=== PATIENT | male | born 1960 | race African-American/Black ===

== ENCOUNTER 2016-11-17 09:45 | Outpatient (CLI) | payer OTHER ==
[2016-11-17 10:46] LABS: ALT (SGPT) 20 U/L (8-55); AST (SGOT) 28 U/L (5-34); Albumin 3.9 g/dL (3.5-5.0); Alkaline Phosphatase 59 U/L (40-150); Anion Gap 12 mmol/L (10-20); BUN (Urea Nitrogen) 19 mg/dL (8.4-25.7); Bilirubin, Total 0.8 mg/dL (0.2-1.2); Calc. Creatinine Clearance 0 mL/min (70-130); Carbon Dioxide 23 mmol/L (22-29); Cardiac Risk 3.1 (Less than 4.5); Chloride 110 mmol/L (98-107); Cholesterol 141 mg/dl (< 200 Desired); Estimated GFR-MDRD 71; Globulin 3.4 g/dL (2.4-3.5); Glucose 106 mg/dL (70-105); HDL Cholesterol 45 mg/dL (>60 Neg Risk); LDL Cholesterol, Calculated 75 mg/dL; Potassium 4.4 mmol/L (3.5-5.1); Protein, Total 7.3 g/dL (6.0-8.3); Sodium 141 mmol/L (136-145); Triglycerides 107 mg/dL (Less than 150)
[2016-11-17 10:57] LABS: Hemoglobin A1c 5.5 % (4.0-6.0)
[2016-11-17 11:13] LABS: #Basophils 0.1 thou/uL (0.0-0.2); #Eosinphils 0.7 thou/uL (0.0-0.7); #Lymphocytes 1.8 thou/uL (1.20-3.40); #Monocytes 0.9 thou/uL (0.11-0.59); #Neutrophils 4.3 thou/uL (1.40-6.50); %Eosinophils 8.5 % (0.0-10.0); %Lymphocytes 23.1 % (21.0-51.0); %Neutrophils 55.4 % (42.0-75.0); Hemoglobin 14.3 g/dL (14.0-18.0); Mean Corpuscular HGB CONC 32.4 g/dL (32.0-36.0); Mean Corpuscular Volume 95.5 fl (80.0-94.0); Mean Platelet Volume 7.3 fL (7.4-10.4); Platelet Count 299 thou/uL (130-400); RBC Distribution Width 13.4 % (11.5-14.5); Red Blood Cell (RBC) Count 4.62 mill/uL (4.70-6.10); White Blood Cell (WBC) Count 7.8 thou/uL (4.8-10.8)
== END 2016-11-17 09:46 | disposition home or self-care (01) ==
LOC: MADLABBHPM 09:45
PROVIDERS: ATTEND Family Medicine
DX: I25.810 Atherosclerosis of coronary artery bypass graft(s) without angina pectoris (principal); N40.0 Benign prostatic hyperplasia without lower urinary tract symptoms; E78.5 Hyperlipidemia, unspecified; I10 Essential (primary) hypertension
CPT/HCPCS: 36415; 80053; 80061; 83036; 84443; 85025

== ENCOUNTER 2017-01-27 14:57 | Emergency (ER) | payer OTHER ==
[~2017-01-27 14:57] MED LIST: Sterile Water Irrigation 250 ML BOT ONE
[2017-01-27] MEDS ORDERED: Adacel (T-DAP) 0.5 ML VIAL ONE (15:51)
--- NOTE | 2017-01-27 16:17 | RAD ---
FRONTAL AND LATERAL IMAGING OF THE LEFT FOREARM: Date: 01-27-17 Comparison: None. History: Cut left wrist with glass one hour ago. FINDINGS: There is a prominent area of skin and soft tissue irregularity consistent with laceration medial to t he distal left ulna. No radiopaque foreign body, fracture, or dislocation. IMPRESSION: Prominent soft tissue laceration adjacent to the distal left ulna. POS: [facility]
[2017-01-27] MEDS ORDERED: Lidocaine 1% 20 ML MDV ONE (17:18)
[2017-01-27] MEDS ORDERED: Mupirocin 2% Ointment 22 GM Tube ONE (17:18)
[2017-01-27] MEDS ORDERED: Lidocaine 2% w/Epinephrine 1:200K 20 ML VIAL ONE (17:18)
[2017-01-27] MEDS ORDERED: Triple Antibiotic Oint 1 GM Packet ONE (17:19)
== END 2017-01-27 19:00 | disposition short-term general hospital (02) ==
LOC: MADERS 14:57
DX: S65.011A Laceration of ulnar artery at wrist and hand level of right arm, initial encounter (principal); S61.511A Laceration without foreign body of right wrist, initial encounter; I10 Essential (primary) hypertension; Z79.899 Other long term (current) drug therapy; Z23 Encounter for immunization; W25.XXXA Contact with sharp glass, initial encounter
CPT/HCPCS: 90471; 90715; J2001

== ENCOUNTER 2017-04-30 19:49 | Emergency (ER) | payer OTHER ==
[2017-04-30] MEDS ORDERED: Ibuprofen 800 MG TAB ONE (20:16)
[2017-04-30] MEDS ORDERED: Cyclobenzaprine 10 MG TAB ONE (20:16)
[2017-04-30] MEDS ORDERED: HYDROcodone/Acetaminophen 5/325 mg Tablet ONE (20:16)
--- NOTE | 2017-04-30 20:39 | RAD ---
FRONTAL RADIOGRAPH CHEST THREE VIEWS RIGHT RIBS 04/30/17 COMPARISON: None. HISTORY: Fall, trauma, pain. FINDINGS: Frontal radiograph chest demonstrates midline sternotomy wires. No pneumothorax, pleural fluid, focal consolidation or alveolar edema. Three views of right ribs demonstrate degenerative change of right AC joint. No displaced right sided rib fracture. IMPRESSION: No acute findings. POS: [facility]
== END 2017-04-30 21:01 | disposition home or self-care (01) ==
LOC: MADERS 19:49
DX: S30.0XXA Contusion of lower back and pelvis, initial encounter (principal); E78.5 Hyperlipidemia, unspecified; I10 Essential (primary) hypertension; Z79.899 Other long term (current) drug therapy; Z79.82 Long term (current) use of aspirin; W10.9XXA Fall (on) (from) unspecified stairs and steps, initial encounter

== ENCOUNTER 2017-09-16 10:03 | Outpatient (CLI) | payer OTHER ==
[2017-09-16 10:48] LABS: ALT (SGPT) 30 U/L (8-55); AST (SGOT) 32 U/L (5-34); Alkaline Phosphatase 44 U/L (40-150); Anion Gap 17 mmol/L (10-20); BUN (Urea Nitrogen) 18 mg/dL (8.4-25.7); Bilirubin, Total 0.7 mg/dL (0.2-1.2); Calc. Creatinine Clearance 0 mL/min (70-130); Carbon Dioxide 20 mmol/L (22-29); Chloride 109 mmol/L (98-107); Cholesterol 131 mg/dl (< 200 Desired); Estimated GFR-MDRD 81; Glucose 99 mg/dL (70-105); HDL Cholesterol 43 mg/dL (>60 Neg Risk); LDL Cholesterol, Calculated 55 mg/dL; Potassium 4.2 mmol/L (3.5-5.1); Sodium 142 mmol/L (136-145); Triglycerides 165 mg/dL (Less than 150)
[2017-09-16 10:51] LABS: #Basophils 0.1 thou/uL (0.0-0.2); #Eosinphils 0.2 thou/uL (0.0-0.7); #Lymphocytes 1.7 thou/uL (1.20-3.40); #Monocytes 0.6 thou/uL (0.11-0.59); #Neutrophils 3.2 thou/uL (1.40-6.50); %Basophils 1.4 % (0.0-1.0); %Eosinophils 3.6 % (0.0-10.0); %Lymphocytes 29.1 % (21.0-51.0); %Neutrophils 55.8 % (42.0-75.0); Mean Corpuscular HGB CONC 34.1 g/dL (32.0-36.0); Mean Corpuscular Hemoglobin 31.6 pg (27.0-31.0); Mean Corpuscular Volume 92.8 fL (78.0-98.0); Mean Platelet Volume 7.3 fL (7.4-10.4); Platelet Count 308 thou/uL (130-400); RBC Distribution Width 13.8 % (11.5-14.5); Red Blood Cell (RBC) Count 4.43 mill/uL (4.70-6.10); White Blood Cell (WBC) Count 5.8 thou/uL (4.8-10.8)
== END 2017-09-16 10:04 | disposition home or self-care (01) ==
LOC: MADLABBHPM 10:03
PROVIDERS: ATTEND Family Medicine
DX: E78.2 Mixed hyperlipidemia (principal); I10 Essential (primary) hypertension; F17.200 Nicotine dependence, unspecified, uncomplicated
CPT/HCPCS: 36415; 80053; 80061; 85025

== ENCOUNTER 2021-08-15 04:41 | Emergency (ER) | payer OTHER ==
[2021-08-15 05:25] LABS: ALT (SGPT) 14 U/L (8-55); AST (SGOT) 26 U/L (5-34); Albumin 3.8 g/dL (3.5-5.0); Alkaline Phosphatase 75 U/L (40-110); Anion Gap 18 mmol/L (10-20); BUN (Urea Nitrogen) 19 mg/dL (8.4-25.7); Bilirubin, Total 0.4 mg/dL (0.2-1.2); Calc. Creatinine Clearance 0 mL/min (70-130); Calcium 9.1 mg/dL (7.8-10.44); Carbon Dioxide 22 mmol/L (22-29); Chloride 107 mmol/L (98-107); Globulin 3.4 g/dL (2.4-3.5); Glucose 135 mg/dL (70-105); Potassium 3.9 mmol/L (3.5-5.1); Protein, Total 7.2 g/dL (6.0-8.3); Sodium 143 mmol/L (136-145)
[2021-08-15 05:27] LABS: Eosinophils 2 % (0-10); Lymphocytes 27 % (21-51); MDiff Complete? YES; Mean Corpuscular HGB CONC 32.3 g/dL (32.0-36.0); Mean Corpuscular Hemoglobin 29.9 pg (27.0-31.0); Mean Corpuscular Volume 92.8 fL (78.0-98.0); Mean Platelet Volume 8.3 fL (7.4-10.4); Monocytes 4 % (0-10); Neutrophil 67 % (42-75); Platelet Count 304 thou/uL (130-400); RBC Distribution Width 13.5 % (11.5-14.5); Red Blood Cell (RBC) Count 5.02 mill/uL (4.70-6.10); White Blood Cell (WBC) Count 9.6 thou/uL (4.8-10.8)
[2021-08-15] MEDS ORDERED: Enoxaparin Sodium 100 MG/ML SYRINGE ONE (05:40)
[2021-08-15 05:54] LABS: CKMB 2.9 ng/mL (0-6.6)
== END 2021-08-15 06:19 | disposition short-term general hospital (02) ==
LOC: MADERS 04:41
DX: I21.4 Non-ST elevation (NSTEMI) myocardial infarction (principal); E78.5 Hyperlipidemia, unspecified; I10 Essential (primary) hypertension; F17.210 Nicotine dependence, cigarettes, uncomplicated; Z79.899 Other long term (current) drug therapy; Z79.82 Long term (current) use of aspirin
CPT/HCPCS: 71045; 80053; 82553; 83880; 84484; 85025; 93005; 96372; J1650